=== PATIENT | male | born 1965 | race Two or more races ===

== ENCOUNTER 2023-12-24 18:45 | Emergency (ER) | payer OTHER, SELFPAY ==
[2023-12-24 18:54] VITALS: BP 171/83; PULSE 92; TEMP 36.8; O2SAT 96; BMI 47.9
--- NOTE | 2023-12-24 19:01 | ED_ITS ---
HPI - Wound/Laceration General Chief Complaint: Wound/Laceration Stated Complaint: Laceration Time Seen by Provider: 12/24/23 18:57 Source: patient Mode of arrival: walk-in Limitations: no limitations History of Present Illness HPI narrative: Patient is a 58-year-old male who presents to the emergency department for evaluation of a laceration to the right index finger. He is right hand dominant. He reports he was using a metal wire to remove a utility box and sustained a laceration to the fingertip. Bleeding is well-controlled. Unknown last tetanus. No other associated injuries. Related Data Allergies Allergy/AdvReac Type Severity Reaction Status Date / Time No Known Drug Allergies Allergy Verified 12/24/23 18:54 Review of Systems ROS Constitutional Denies: fever or chills Ears, nose, mouth, and throat Denies: throat pain or nasal congestion Respiratory Denies: shortness of breath Gastrointestinal Denies: nausea or vomiting Integumentary/Breast Denies: rash Neurological Denies: headache Endocrine Denies: excessive urination Hematologic/Lymphatic Denies: easy bruising or easy bleeding Exam Narrative Exam Narrative: Gen.: Awake, alert, in no distress Head: Normocephalic, atraumatic ENT: Moist mucous membranes Respiratory: No respiratory distress Extremities: Moves extremities equally, 1.5 cm laceration over the fat pad of the right second finger, distal phalanx. No fingernail involvement. No deep lacerations into the subcutaneous tissue. No active bleeding. Normal flexion extension of the DIP and PIP joints Psych: Normal mood and affect Neuro: No focal neuro deficit Skin: Warm, dry, intact Constitutional Vital Signs, click to edit/add: Last Vital Signs Temp 98.2 F 12/24/23 18:54 Pulse 92 H 12/24/23 18:54 Resp 18 12/24/23 18:54 BP 171/83 H 12/24/23 18:54 Pulse Ox 96 12/24/23 18:54 O2 Del Method Room Air 12/24/23 18:54 Course Vital Signs Vital signs: Vital Signs Temperature 98.2 F 12/24/23 18:54 Pulse Rate 92 H 12/24/23 18:54 Respiratory Rate 18 12/24/23 18:54 Blood Pressure 171/83 H 12/24/23 18:54 Pulse Oximetry 96 12/24/23 18:54 Oxygen Delivery Method Room Air 12/24/23 18:54 Temperature 98.2 F 12/24/23 18:54 Pulse Rate 92 H 12/24/23 18:54 Respiratory Rate 18 12/24/23 18:54 Blood Pressure 171/83 H 12/24/23 18:54 Pulse Oximetry 96 12/24/23 18:54 Oxygen Delivery Method Room Air 12/24/23 18:54 MDM - Wound/Laceration MDM Narrative Medical decision making narrative: Laceration repaired without difficulty, please see procedure note for details. Sutures removed in 7 to 10 days. Tetanus updated in the ER. Laceration repair: Done under sterile conditions. The use of Shur-Clens prep the area. digital block with lidocaine 1% was used, approximately 5 cc. The wound was irrigated copiously with normal saline. The wound was explored there was no evidence of foreign material. The laceration was approximated with 5-0 nylon. 2 simple interrupted sutures were placed. Patient tolerated the procedure well. The patient was neurovascularly intact post. the patient had bacitracin applied to the laceration and a dry sterile dressing was place. The patient will need to follow-up in the next 7-10 days for removal SHARED APC VISIT, PHYSICIAN ATTESTATION: [id number] I performed a substantive part of the MDM during the patient?s E/M visit. I per sonally evaluated and examined the patient. I personally made or approved the documented management plan and acknowledge its risk of complications. Medical Records Attestation: I reviewed the patient's medical records. Discharge Plan Discharge Stand Alone Forms: Portal Instructions Chief Complaint: Wound/Laceration Clinical Impression: Finger laceration Patient Disposition: Home, Self-Care Time of Disposition Decision: 19:35 Condition: Good Print Language: Hungarian Instructions: Laceration (ED) Additional Instructions: Sutures removed in 7-10 days with your doctor Referrals: HERO HERNANDEZ [Primary Care Provider] - 1 week
[2023-12-24] MEDS: LIDOCAINE HCL 1% 100 MG/10 ML MDV INJ (19:17)
[2023-12-24] MEDS: BACITRACIN 0.9 GM PACKET 1 PACKET TOPICAL (19:17)
[2023-12-24] MEDS: ADACEL DIPH,PERTUSS(ACELL),TET VAC/PF 0.5 ML ADULT SYRINGE IM (19:18)
[2023-12-24 19:57] VITALS: BP 150/75; PULSE 70; O2SAT 96
== END 2023-12-24 20:00 | disposition home or self-care (01) ==
PROVIDERS: Emergency Provider Emergency Medicine; PCP Nurse Practitioner
DX: S61.210A Laceration without foreign body of right index finger without damage to nail, initial encounter (principal); Z23 Encounter for immunization; W26.8XXA Contact with other sharp object(s), not elsewhere classified, initial encounter
CPT/HCPCS: 12001; 90471; 90715; 99283